=== PATIENT | female | born 1970 | race Caucasian/White ===

== ENCOUNTER 2022-02-26 13:22 | Emergency (ER) | payer BC, SELFPAY ==
[2022-02-26 13:21] VITALS: BP 118/71; PULSE 77; RESP 19; TEMP 36.9; O2SAT 100
[2022-02-26 13:32] VITALS: PULSE 76; RESP 13; O2SAT 100
--- NOTE | 2022-02-26 13:33 | ED.ALLEREA ---
HPI - Allergic Reaction General Chief complaint: Allergic Reaction Stated complaint: allergic reaction Source: patient, family and EMS Limitations: no limitations History of Present Illness HPI narrative: 51 years old white female brought to the emergency room by ambulance after being stung by a wasp 1 hour prior to arrival. Symptoms include itching, rash, dizzy feeling, nausea, tightness in the chest and throat. The symptom resolved on arrival to the emergency room after getting epinephrine 0.3 IM, Benadryl 50 mg orally, Zofran 4 mg and normal saline. Currently patient is asymptomatic. Related Data Allergies Allergy/AdvReac Type Severity Reaction Status Date / Time venom-wasp Allergy Anaphylaxis Verified 02/26/22 13:31 Review of Systems Review of Systems: All systems reviewed & are unremarkable except as noted in HPI and below Exam Narrative: General appearance: Well-developed, well-nourished Skin: Normal color Head: Normocephalic, nontraumatic Eyes: Clear conjunctiva ENT: Oropharynx normal, ears normal, nose normal Neck: Supple, nontender Chest and respiratory: Airway patent, no respiratory distress, no accessory muscle use Heart: Regular rate/rhythm Abdomen: Soft, nontender, no organomegaly, quiet bowel sounds Vascular: Normal peripheral pulses, normal capillary refill. Musculoskeletal: Normal range of motion, nontender back Neurologic: Alert and oriented ?3, [employer] INS[employer]IST is normal as tested, no gross motor deficit Course Course Emergency Course: Improved In the ED patient received Solu-Medrol 125 mg IV and famotidine 20 mg IV. Vital Signs Vital signs: Vital Signs Temperature 36.9 C 02/26/22 13:21 Pulse Rate 77 02/26/22 13:21 Respiratory Rate 19 02/26/22 13:21 Blood Pressure 118/71 02/26/22 13:21 Pulse Oximetry 100 02/26/22 13:21 Oxygen Delivery Room Air 02/26/22 13:21 Temperature 36.9 C 02/26/22 13:21 Pulse Rate 77 02/26/22 13:21 Respiratory Rate 19 02/26/22 13:21 Blood Pressure 118/71 02/26/22 13:21 Pulse Oximetry 100 02/26/22 13:21 Oxygen Delivery Room Air 02/26/22 13:21 MDM - Allergic Reaction Differential Diagnosis Differential diagnosis: Likely allergic reaction and urticaria Critical Care Time Critical Care Time Critical Care Time: Yes Total Critical Care Time: 20 Discharge Plan Discharge Clinical Impression: Allergic reaction Patient Disposition: Home, Self-Care Condition: Improved Instructions: Insect Bite or Sting (ED), General Allergic Reaction (ED) Additional Instructions: Return if symptoms are worsening , call your family physician for appointment, take Tylenol as as needed for aches and pain, continue home medications. Prescriptions: New prednisone 20 mg tablet 40 mg PO DAILY 5 Days Qty: 10 0RF epinephrine [EpiPen 2-Jun] 0.3 mg/0.3 mL auto-injector 0.3 mg IM Q5-15M PRN (Reason: anaphylaxis) Qty: 1 0RF Rx Instructions: do not exceed 3 doses per episode Follow-up/Referrals: Mary,Jaymie Johnson MD [Primary Care Provider] -
[2022-02-26] MEDS: FAMOTIDINE 20 MG/2 ML VIAL IV PUSH (13:43)
[2022-02-26] MEDS: methylPREDNISolone SOD SUCC 125 MG VIAL IV PUSH (13:43)
[2022-02-26 13:45] VITALS: PULSE 79; RESP 16; O2SAT 100
[2022-02-26 13:46] VITALS: BP 119/64; PULSE 79; RESP 21; O2SAT 100
[2022-02-26 14:00] VITALS: PULSE 75; RESP 16; O2SAT 100
[2022-02-26 14:01] VITALS: BP 100/61; PULSE 75; RESP 19; O2SAT 100
== END 2022-02-26 14:35 | disposition home or self-care (01) ==
LOC: ANHED 13:59
PROVIDERS: Emergency Provider Emergency Medicine
DX: T63.461A Toxic effect of venom of wasps, accidental (unintentional), initial encounter (principal)
CPT/HCPCS: 96374; 96375; 99284; J2930

== ENCOUNTER 2024-01-20 14:43 | Emergency (ER) | payer BC, SELFPAY ==
--- NOTE | ~2024-01-20 | XR_ITS ---
XR knee LT 3V Ordering provider: Janis Hernandez APRN History: . fall on pavement, lac left anterior knee below patella . Comparison: None. FINDINGS: BONES: No acute fracture or dislocation. JOINT SPACES: Normal. SOFT TISSUES: Normal. IMPRESSION: No acute osseous abnormality left knee. Reviewed, dictated and finalized at location A.
--- NOTE | 2024-01-20 14:55 | ED.WOUNDLAC ---
HPI - Wound/Laceration General Chief Complaint: Wound/Laceration Stated Complaint: fall, lt knee laceration Time Seen by Provider: 01/20/24 15:00 Source: patient Mode of arrival: ambulatory Limitations: no limitations History of Present Illness HPI narrative: 53 y/o female presented for c/o laceration to left knee sustained just prior to arrival. States she tripped and fell, the left knee landed on asphalt. Attempted to irrigate the site at home using tap water. Also endorses scattered abrasions to the lower leg. Denies deformity, numbness, tingling or weakness. Related Data Allergies Allergy/AdvReac Type Severity Reaction Status Date / Time venom-wasp Allergy Severe Anaphylaxis Verified 01/20/24 15:04 Review of Systems Review of Systems: CONSTITUTIONAL: Denies body aches, fever, chills, or sweats. CARDIOVASCULAR: Denies chest pain, palpitations, or edema. RESPIRATORY: Denies cough or dyspnea. SKIN: reports left knee laceration MUSCULOSKELETAL: Denies back pain, joint pain, or myalgia. NEUROLOGIC: Denies numbness, tingling, or weakness. PMFSH Comments At time of signature, I have reviewed and agree with nursing past medical, surgical, social and family history unless otherwise noted. Please see nursing chart for further information. There is no relevant family history pertinent to the presenting complaint Exam Narrative: GENERAL: Well-appearing HEAD: Normocephalic, atraumatic. EYES: conjunctivae clear, and EOMI. ENT: Mucous membranes moist. Oropharynx without edema, erythema or lesions. NECK: Supple. No lymphadenopathy CHEST: Clear to auscultation. HEART: Regular rate and rhythm. SKIN: Warm, dry. Left knee laceration T-shape, [id number], gaping. NEURO: Alert and oriented x3. Course Course Emergency Course: Patient is aware of diagnosis, understands and agrees to treatment plan. Anticipatory guidance given. Patient agrees to follow-up as directed and is aware of reasons to seek care at the emergency department. Portions of this record may have been created with voice recognition software Level of Care: Express Care Visit Vital Signs Vital signs: Vital Signs Temperature 97.6 F 01/20/24 14:57 Pulse Rate 63 01/20/24 14:57 Respiratory Rate 16 01/20/24 14:57 Blood Pressure 114/82 01/20/24 14:57 Pulse Oximetry 100 01/20/24 14:57 Temperature 97.6 F 01/20/24 14:57 Pulse Rate 63 01/20/24 14:57 Respiratory Rate 16 01/20/24 14:57 Blood Pressure 114/82 01/20/24 14:57 Pulse Oximetry 100 01/20/24 14:57 Reviewed Procedures Laceration left knee: Size (cm): 2.5 Description: irregular and clean Depth: simple, single layer Local Anesthetic: lidocaine 1% Amount of anesthesia used (mL): 4 Pre-repair: irrigated (150mL) ====== Skin Level ====== Skin layer closed with: nylon Size (cm): 5-0 Number of sutures: 6 Technique: simple, interrupted ====== Subcutaneous Layer ====== ====== Muscle Layer ====== ====== Tendon Layer ====== Dressing: The procedure and its alternatives were reviewed with patient. Risks were reviewed with patient including infection and damage to nearby structures. Patient provided verbal informed consent. The patient was positioned appropriately. Sterile drapes applied to maintain sterile field. Wound was explored for abnormalities including infection and foreign bodies. Sutures placed with wound edges approximated. Patient tolerated well, no complications. Dressing applied per RN. MDM - Wound/Laceration MDM Narrative Medical decision making narrative: Discussed physical exam findings; no FB per xray. pt tolerated wound closure. Advised supportive measures and signs/symptoms to go to the ER. Pt is appropriate for outpt treatment and f/u. Differential Diagnosis Differential diagnosis: Likely laceration, abscess, abrasion and avulsion of skin Imaging
[2024-01-20 14:57] VITALS: BP 114/82; PULSE 63; RESP 16; TEMP 36.4; O2SAT 100
[2024-01-20] MEDS: TETANUS,DIPHTHERIA,AC PERTUSSIS ADULT (0.5 ML) BOOSTRIX IM (15:19)
[2024-01-20] MEDS: LIDOCAINE HCL 1% LOCAL INJ 2 ML AMPUL 4 ML INFILTRATE (15:21)
== END 2024-01-20 16:27 | disposition home or self-care (01) ==
PROVIDERS: Emergency Provider Nurse Practitioner Family; PCP Family Medicine
DX: S81.012A Laceration without foreign body, left knee, initial encounter (principal); W01.0XXA Fall on same level from slipping, tripping and stumbling without subsequent striking against object, initial encounter; Z23 Encounter for immunization
CPT/HCPCS: 12001; 73562; 90471; 90715; 99213; G0463